=== PATIENT | female | born 1980 | race Caucasian/White ===

== ENCOUNTER → 2020-12-25 | Outpatient (CLI) | payer OTHER | LOC: MRI 13:26 | DX: R20.2 Paresthesia of skin (principal); E04.9 Nontoxic goiter, unspecified; E04.1 Nontoxic single thyroid nodule | CPT/HCPCS: 70553; 76536; A9577 ==

== ENCOUNTER → 2021-07-02 | Outpatient (CLI) | payer OTHER | LOC: KOH-I 09:31 | DX: R16.0 Hepatomegaly, not elsewhere classified (principal) | CPT/HCPCS: 76700 ==